=== PATIENT | male | born 1970 | race Caucasian/White ===

== ENCOUNTER → 2023-09-19 13:16 | Outpatient (CLI) | payer OTHER, SELFPAY ==
[2023-09-19 13:55] LABS: Basophils % 0.3 % (0.1-2.0); Eosinophils # 0.2 K/mm3 (0.0-0.4); Eosinophils % 2.7 % (0.1-12.0); Hematocrit 41.7 % (42.0-52.0); Hemoglobin 14.6 g/dL (14.1-18.0); Lymphocytes # 2.4 K/mm3 (0.7-4.5); Lymphocytes % 27.8 % (10-50); Mean Corpuscular HGB Conc 34.9 g/dL (31.8-35.4); Mean Corpuscular Hemoglobin 29.9 pg (27.0-31.2); Mean Corpuscular Volume 85.7 fl (80-94); Mean Platelet Volume 8.8 fl (7.4-10.4); Monocytes # 0.5 K/mm3 (0.1-1.0); Monocytes % 5.4 % (1.7-9.3); Neutrophils # 5.5 K/mm3 (1.8-7.8); Neutrophils % 63.8 % (37.0-80.0); Platelet Count 312 K/mm3 (142-424); Red Blood Count 4.87 M/mm3 (4.60-6.20); Red Cell Distribution Width 13.5 % (11.5-17.5); White Blood Count 8.7 K/mm3 (4.8-10.8)
[2023-09-19 16:06] LABS: Alanine Aminotransferase 35 U/L (12-78); Albumin Level 4.7 g/dl (3.5-5.0); Albumin/Globulin Ratio 1.8 (1.1-1.8); Alkaline Phosphatase 109 U/L (38-126); Anion Gap 20.7 mEq/L (5-15); Aspartate Amino Transferase 34 U/L (17-59); Bilirubin,Total 0.4 mg/dl (0.2-1.3); Blood Urea Nitrogen 14 mg/dl (9-20); Calcium 9.4 mg/dl (8.4-10.2); Carbon Dioxide 23 mmol/L (22.0-30.0); Chloride 101 mmol/L (98-107); Chol/HDL Ratio 3.5 (1-3.5); Cholesterol 145 mg/dl (140-200); Estimated Glomerular Filt Rate 88 ml/min (>60); GFR (African American) 106 ML/MIN (>60); Globulin 2.6 g/dL (1.3-3.2); Glucose 131 mg/dl (74-100); HDL Cholesterol 42 mg/dl (40-60); Magnesium 1.7 mg/dl (1.6-2.3); Potassium 4.7 mmoL/L (3.5-5.1); Sodium 140 mmol/L (136-145); Total Protein,Serum 7.3 g/dl (6.3-8.2); Triglycerides 107 mg/dl (30-150); VLDL Cholesterol 21 mg/dL (0-40)
[2023-09-19 16:17] LABS: Direct LDL Cholesterol 85.24 mg/dL (100-129)
[2023-09-19 16:36] LABS: Thyroid Stimulating Hormone 2.42 uIU/mL (0.465-4.68)
[2023-09-19 17:48] LABS: Hemoglobin A1C 7.2 % (4.0-6.0)
== END ==
PROVIDERS: PCP Nurse Practitioner Family; Visit Provider Nurse Practitioner Family
DX: E78.5 Hyperlipidemia, unspecified (principal); E11.9 Type 2 diabetes mellitus without complications; I10 Essential (primary) hypertension; I49.9 Cardiac arrhythmia, unspecified; Z79.84 Long term (current) use of oral hypoglycemic drugs
CPT/HCPCS: 80053; 80061; 83036; 83735; 84443; 85025

== ENCOUNTER 2024-01-06 13:10 | Outpatient (CLI) | payer OTHER, SELFPAY ==
[2024-01-06 13:33] LABS: Alanine Aminotransferase 58 U/L (12-78); Albumin Level 4.9 g/dl (3.5-5.0); Alkaline Phosphatase 135 U/L (38-126); Anion Gap 16.8 mEq/L (5-15); Aspartate Amino Transferase 41 U/L (17-59); Bilirubin,Total 0.7 mg/dl (0.2-1.3); Blood Urea Nitrogen 13 mg/dl (9-20); Calcium 9.4 mg/dl (8.4-10.2); Carbon Dioxide 25 mmol/L (22.0-30.0); Chloride 103 mmol/L (98-107); Chol/HDL Ratio 3.6 (1-3.5); Cholesterol 161 mg/dl (140-200); Estimated Glomerular Filt Rate 88 ml/min (>60); GFR (African American) 106 ML/MIN (>60); Globulin 2.4 g/dL (1.3-3.2); Glucose 153 mg/dl (74-100); HDL Cholesterol 45 mg/dl (40-60); Potassium 4.8 mmoL/L (3.5-5.1); Sodium 140 mmol/L (136-145); Total Protein,Serum 7.3 g/dl (6.3-8.2); Triglycerides 77 mg/dl (30-150); VLDL Cholesterol 15 mg/dL (0-40)
[2024-01-06 13:44] LABS: Direct LDL Cholesterol 88.21 mg/dL (100-129)
[2024-01-06 14:08] LABS: Prostate Specific Ag Screen 0.9 ng/ml (0.0-4.0); Thyroid Stimulating Hormone 3.69 uIU/mL (0.465-4.68)
[2024-01-06 14:55] LABS: Hemoglobin A1C 7.9 % (4.0-6.0)
== END 2024-01-06 23:59 ==
LOC: LAB.DROPOF 13:11
PROVIDERS: PCP Nurse Practitioner Family; Visit Provider Nurse Practitioner Family
DX: E11.9 Type 2 diabetes mellitus without complications (principal); E78.5 Hyperlipidemia, unspecified; Z12.5 Encounter for screening for malignant neoplasm of prostate; I10 Essential (primary) hypertension; Z79.84 Long term (current) use of oral hypoglycemic drugs
CPT/HCPCS: 80053; 80061; 83036; 84443; G0103

== ENCOUNTER 2024-04-05 14:50 | Outpatient (CLI) | payer OTHER, SELFPAY | END 2024-04-05 23:59 | disposition home or self-care (01) | LOC: LAB.DROPOF 14:50 | PROVIDERS: PCP Nurse Practitioner Family; Visit Provider Nurse Practitioner Family | DX: E11.9 Type 2 diabetes mellitus without complications (principal); E78.2 Mixed hyperlipidemia; Z79.84 Long term (current) use of oral hypoglycemic drugs; Z79.899 Other long term (current) drug therapy | CPT/HCPCS: 82043 ==

== ENCOUNTER 2024-08-24 15:11 | Outpatient (CLI) | payer OTHER, SELFPAY ==
[2024-08-24 14:53] LABS: Alanine Aminotransferase 46 U/L (12-78); Albumin Level 4.8 g/dl (3.5-5.0); Albumin/Globulin Ratio 1.7 (1.1-1.8); Alkaline Phosphatase 120 U/L (38-126); Anion Gap 13.6 mEq/L (5-15); Aspartate Amino Transferase 38 U/L (17-59); Bilirubin,Total 0.7 mg/dl (0.2-1.3); Blood Urea Nitrogen 13 mg/dl (9-20); Calcium 9.5 mg/dl (8.4-10.2); Carbon Dioxide 26 mmol/L (22.0-30.0); Chloride 103 mmol/L (98-107); Cholesterol 198 mg/dl (140-200); Estimated Glomerular Filt Rate 100 ml/min (>60); GFR (African American) 121 ML/MIN (>60); Globulin 2.8 g/dL (1.3-3.2); Glucose 133 mg/dl (74-100); HDL Cholesterol 49 mg/dl (40-60); Magnesium 1.7 mg/dl (1.6-2.3); Potassium 4.6 mmoL/L (3.5-5.1); Sodium 138 mmol/L (136-145); Total Protein,Serum 7.6 g/dl (6.3-8.2); Triglycerides 118 mg/dl (30-150); VLDL Cholesterol 24 mg/dL (0-40)
[2024-08-24 15:04] LABS: Direct LDL Cholesterol 116.13 mg/dL (100-129)
[2024-08-24 15:46] LABS: Creatinine,Urine Random 188 mg/dL (Not Estab.)
[2024-08-24 15:51] LABS: Microalbumin/Creatinine Ratio 9.7
[2024-08-24 16:17] LABS: Hemoglobin A1C 7.6 % (4.0-6.0)
== END 2024-08-24 23:59 | disposition home or self-care (01) ==
LOC: LAB.DROPOF 15:11
PROVIDERS: PCP Nurse Practitioner Family; Visit Provider Nurse Practitioner Family
DX: E78.2 Mixed hyperlipidemia (principal); E11.9 Type 2 diabetes mellitus without complications; Z79.84 Long term (current) use of oral hypoglycemic drugs
CPT/HCPCS: 80053; 80061; 82043; 82570; 83036; 83735

== ENCOUNTER 2024-11-24 09:58 | Outpatient (CLI) | payer OTHER, SELFPAY ==
[2024-11-24 13:59] LABS: Hemoglobin A1C 8.6 % (4.0-6.0)
[2024-11-24 14:26] LABS: Microalbumin/Creatinine Ratio 18.6
[2024-11-24 14:32] LABS: Alanine Aminotransferase 51 U/L (12-78); Albumin Level 4.6 g/dl (3.5-5.0); Albumin/Globulin Ratio 1.9 (1.1-1.8); Alkaline Phosphatase 137 U/L (38-126); Anion Gap 19.6 mEq/L (5-15); Aspartate Amino Transferase 39 U/L (17-59); Bilirubin,Total 0.6 mg/dl (0.2-1.3); Blood Urea Nitrogen 10 mg/dl (9-20); Calcium 9.5 mg/dl (8.4-10.2); Carbon Dioxide 23 mmol/L (22.0-30.0); Chloride 101 mmol/L (98-107); Estimated Glomerular Filt Rate 117 ml/min (>60); GFR (African American) 142 ML/MIN (>60); Globulin 2.4 g/dL (1.3-3.2); Glucose 211 mg/dl (74-100); Magnesium 1.6 mg/dl (1.6-2.3); Potassium 4.6 mmoL/L (3.5-5.1); Sodium 139 mmol/L (136-145)
[2024-11-24 14:33] LABS: Creatinine,Urine Random 129 mg/dL (Not Estab.)
[2024-11-24 15:03] LABS: Thyroid Stimulating Hormone 2.59 uIU/mL (0.465-4.68)
== END 2024-11-24 23:59 | disposition home or self-care (01) ==
LOC: LAB.DROPOF 11-25 13:50
PROVIDERS: PCP Nurse Practitioner Family; Visit Provider Nurse Practitioner Family
DX: E11.9 Type 2 diabetes mellitus without complications (principal); E78.2 Mixed hyperlipidemia; I10 Essential (primary) hypertension
CPT/HCPCS: 80053; 82043; 82570; 83036; 83735; 84443

== ENCOUNTER 2025-03-18 13:32 | Outpatient (CLI) | payer OTHER, SELFPAY ==
[2025-03-18 16:56] LABS: Alanine Aminotransferase 25 U/L (12-78); Albumin Level 4.6 g/dl (3.5-5.0); Albumin/Globulin Ratio 2.1 (1.1-1.8); Alkaline Phosphatase 111 U/L (38-126); Anion Gap 13.6 mEq/L (5-15); Aspartate Amino Transferase 25 U/L (17-59); Bilirubin,Total 0.6 mg/dl (0.2-1.3); Blood Urea Nitrogen 14 mg/dl (9-20); Calcium 9.2 mg/dl (8.4-10.2); Carbon Dioxide 24 mmol/L (22.0-30.0); Chloride 104 mmol/L (98-107); Chol/HDL Ratio 2.9 (1-3.5); Cholesterol 140 mg/dl (140-200); Estimated Glomerular Filt Rate 117 ml/min (>60); GFR (African American) 142 ML/MIN (>60); Globulin 2.2 g/dL (1.3-3.2); Glucose 163 mg/dl (74-100); HDL Cholesterol 48 mg/dl (40-60); Potassium 4.6 mmoL/L (3.5-5.1); Sodium 137 mmol/L (136-145); Total Protein,Serum 6.8 g/dl (6.3-8.2); Triglycerides 102 mg/dl (30-150); VLDL Cholesterol 20 mg/dL (0-40)
[2025-03-18 17:07] LABS: Direct LDL Cholesterol 72.18 mg/dL (100-129)
[2025-03-18 17:27] LABS: Prostate Specific Ag Screen 0.8 ng/ml (0.0-4.0); Thyroid Stimulating Hormone 3.17 uIU/mL (0.465-4.68)
[2025-03-18 18:32] LABS: Microalbumin/Creatinine Ratio 10.6
[2025-03-18 18:33] LABS: Creatinine,Urine Random 204 mg/dL (Not Estab.)
[2025-03-18 19:40] LABS: Hemoglobin A1C 8.7 % (4.0-6.0)
== END 2025-03-18 23:59 | disposition home or self-care (01) ==
LOC: LAB.DROPOF 03-21 13:34
PROVIDERS: PCP Nurse Practitioner Family; Visit Provider Nurse Practitioner Family
DX: Z12.5 Encounter for screening for malignant neoplasm of prostate (principal); E11.9 Type 2 diabetes mellitus without complications; E78.5 Hyperlipidemia, unspecified; I10 Essential (primary) hypertension; Z79.84 Long term (current) use of oral hypoglycemic drugs
CPT/HCPCS: 80053; 80061; 82043; 82570; 83036; 84443; G0103

== ENCOUNTER 2025-06-20 10:00 | Outpatient (CLI) | payer OTHER, SELFPAY ==
[2025-06-20 16:02] LABS: Hemoglobin A1C 7.0 % (4.0-6.0)
[2025-06-20 16:09] LABS: Albumin Level 4.8 g/dl (3.5-5.0); Chloride 105 mmol/L (98-107); Potassium 4.4 mmoL/L (3.5-5.1); Sodium 139 mmol/L (136-145)
[2025-06-20 16:12] LABS: Alanine Aminotransferase 21 U/L (12-78); Albumin/Globulin Ratio 1.8 (1.1-1.8); Alkaline Phosphatase 105 U/L (38-126); Anion Gap 17.4 mEq/L (5-15); Aspartate Amino Transferase 27 U/L (17-59); Bilirubin,Total 0.5 mg/dl (0.2-1.3); Blood Urea Nitrogen 17 mg/dl (9-20); Calcium 9.4 mg/dl (8.4-10.2); Carbon Dioxide 21 mmol/L (22.0-30.0); Cholesterol 149 mg/dl (140-200); Creatinine,Serum 0.80 mg/dl (0.66-1.25); Estimated Glomerular Filt Rate 100 ml/min (>60); GFR (African American) 121 ML/MIN (>60); Globulin 2.6 g/dL (1.3-3.2); Total Protein,Serum 7.4 g/dl (6.3-8.2); Triglycerides 61 mg/dl (30-150)
[2025-06-20 16:13] LABS: HDL Cholesterol 62 mg/dl (40-60); Magnesium 1.8 mg/dl (1.6-2.3)
[2025-06-20 16:20] LABS: Glucose 48 mg/dl (74-100)
[2025-06-20 16:41] LABS: Thyroid Stimulating Hormone 2.52 uIU/mL (0.465-4.68)
== END 2025-06-20 23:59 | disposition home or self-care (01) ==
LOC: LAB.DROPOF 06-22 09:52
PROVIDERS: PCP Nurse Practitioner Family; Visit Provider Nurse Practitioner Family
DX: E78.2 Mixed hyperlipidemia (principal); E11.9 Type 2 diabetes mellitus without complications; I10 Essential (primary) hypertension
CPT/HCPCS: 80053; 80061; 82043; 82570; 83036; 83735; 84443

== ENCOUNTER 2025-09-20 10:16 | Outpatient (CLI) | payer OTHER, SELFPAY ==
[2025-09-20 15:52] LABS: Alanine Aminotransferase 23 U/L (12-78); Albumin Level 4.8 g/dl (3.5-5.0); Albumin/Globulin Ratio 1.8 (1.1-1.8); Alkaline Phosphatase 133 U/L (38-126); Anion Gap 15.8 mEq/L (5-15); Aspartate Amino Transferase 22 U/L (17-59); Bilirubin,Total 0.8 mg/dl (0.2-1.3); Blood Urea Nitrogen 11 mg/dl (9-20); Calcium 9.5 mg/dl (8.4-10.2); Carbon Dioxide 21 mmol/L (22.0-30.0); Chloride 103 mmol/L (98-107); Cholesterol 139 mg/dl (140-200); Creatinine,Serum 0.70 mg/dl (0.66-1.25); Estimated Glomerular Filt Rate 117 ml/min (>60); GFR (African American) 141 ML/MIN (>60); Globulin 2.6 g/dL (1.3-3.2); Glucose 137 mg/dl (74-100); HDL Cholesterol 51 mg/dl (40-60); Magnesium 1.7 mg/dl (1.6-2.3); Potassium 4.8 mmoL/L (3.5-5.1); Sodium 135 mmol/L (136-145); Total Protein,Serum 7.4 g/dl (6.3-8.2); Triglycerides 91 mg/dl (30-150)
[2025-09-20 16:24] LABS: Thyroid Stimulating Hormone 1.81 uIU/mL (0.465-4.68)
[2025-09-20 16:44] LABS: Vitamin B12 248 pg/mL (239-931)
[2025-09-20 18:58] LABS: Hemoglobin A1C 7.4 % (4.0-6.0)
== END 2025-09-20 23:59 | disposition home or self-care (01) ==
LOC: LAB.DROPOF 09-21 12:10
PROVIDERS: PCP Nurse Practitioner Family; Visit Provider Nurse Practitioner Family
DX: E78.2 Mixed hyperlipidemia (principal); E11.9 Type 2 diabetes mellitus without complications; I10 Essential (primary) hypertension
CPT/HCPCS: 80053; 80061; 82043; 82607; 83036; 83735; 84443